=== PATIENT | male | born 2000 | race Caucasian/White ===

== ENCOUNTER 2020-05-25 14:33 | Emergency (ER) | payer BC ==
[~2020-05-25] VITALS: Ht 162.6 cm; Wt 54.5 kg
[2020-05-25] MEDS ORDERED: HYDR-3972 PO (15:59)
[2020-05-25] MEDS ORDERED: ONDA4TAB12 PO (15:59)
[2020-05-25] MEDS ORDERED: ketorolac tromethamine 15mg/ml inj. IM ONE (16:20)
[2020-05-25 17:16] VITALS: BP 106/61
== END 2020-05-25 17:17 | disposition home or self-care (01) ==
LOC: ER 14:34
DX: R10.9 Unspecified abdominal pain (principal); M25.472 Effusion, left ankle; M25.471 Effusion, right ankle; F17.200 Nicotine dependence, unspecified, uncomplicated; Z98.890 Other specified postprocedural states; Z79.899 Other long term (current) drug therapy
CPT/HCPCS: 96372; 99283; J1885

== ENCOUNTER 2021-11-20 10:05 | Emergency (ER) | payer BC, MEDICAID ==
[~2021-11-20] VITALS: Ht 162.6 cm; Wt 61.4 kg
[~2021-11-20 10:05] MED LIST: HYDR-3972 PO; ONDA4TAB12 PO
[2021-11-20] MEDS ORDERED: normal saline 1000ML IV soln IVB ONE (10:15)
[2021-11-20] MEDS ORDERED: folic acid 1mg/0.2ml inj IV ONE (10:30)
[2021-11-20] MEDS ORDERED: magnesium 2GM in 50ml NS 50 ML IV ONE (10:30)
[2021-11-20] MEDS ORDERED: metoclopramide 5 mg/ml inj IV ONE (10:30)
[2021-11-20] MEDS ORDERED: LORazepam 2 mg/ml vial IV ONE (10:30)
[2021-11-20] MEDS ORDERED: thiamine 100mg/ml 2ml inj. IV ONE (10:30)
[2021-11-20 10:34] LABS: BASOPHILS # (AUTO) 0.1 X10'3 (0-0.2); BASOPHILS % (AUTO) 0.6 % (0-1); EOSINOPHILS % (AUTO) 0.1 % (0-6); HEMATOCRIT 46.3 % (42.0-52.0); HEMOGLOBIN 15.8 g/dl (14.0-17.9); LYMPHOCYTES # (AUTO) 1.2 X10'3 (1.1-4.8); LYMPHOCYTES % (AUTO) 13.3 % (21-51); MEAN CORPUSCULAR HEMOGLOBIN 31.5 PG (27.0-31.0); MEAN CORPUSCULAR HGB CONC 34.1 g/dL (33.0-36.5); MEAN CORPUSCULAR VOLUME 92.3 FL (78-98); MEAN PLATELET VOLUME 6.2 FL (7.4-10.4); MONOCYTES # (AUTO) 0.8 X10'3 (0-0.9); MONOCYTES % (AUTO) 8.1 % (2-12); NEUTROPHILS # (AUTO) 7.2 X10'3 (1.8-7.7); NEUTROPHILS % (AUTO) 77.9 % (42-75); PLATELET COUNT 390 X10'3 (140-440); RED BLOOD COUNT 5.01 X10'6 (4.70-6.10); RED CELL DISTRIBUTION WIDTH 13.6 % (11.5-14.5); WHITE BLOOD COUNT 9.3 X10'3 (4.5-11.0)
[2021-11-20 10:53] LABS: ALANINE AMINOTRANSFERASE 30 U/L (12-78); ALBUMIN 4.1 G/DL (3.4-5.0); ALBUMIN/GLOBULIN RATIO 0.9 (1.1-1.5); ALKALINE PHOSPHATASE 125 IU/L (46-116); ANION GAP 14 (8-16); ASPARTATE AMINO TRANSFERASE 26 U/L (10-37); BILIRUBIN,TOTAL 0.7 MG/DL (0.1-1.0); BLOOD UREA NITROGEN 9 MG/DL (7-18); BUN/CREATININE RATIO 10.8 (5.4-32.0); CALCIUM 9.3 MG/DL (8.5-10.1); CHLORIDE 93 MMOL/L (99-107); CREATININE 0.83 MG/DL (0.60-1.10); GLUCOSE 111 MG/DL (70-104); LIPASE 69 U/L (73-393); POTASSIUM 3.5 MMOL/L (3.5-5.1); SODIUM 135 MMOL/L (135-145); TOTAL CARBON DIOXIDE 27.8 MMOL/L (24-32); TOTAL PROTEIN 8.5 G/DL (6.4-8.2); eGFR > 90 ML/MIN
[2021-11-20 10:55] LABS: ETHANOL < 0.010 GM/DL (0.0-0.010)
[2021-11-20 11:11] LABS: URINE AMPHETAMINE SCREEN NEGATIVE (Neg); URINE BARBITUATE SCREEN NEGATIVE (Neg); URINE BENZODIAZEPINES SCREEN NEGATIVE (Neg); URINE CANNABINOID SCREEN POSITIVE (Neg); URINE COCAINE SCREEN NEGATIVE (Neg); URINE METHADONE SCREEN NEGATIVE (Neg); URINE OPIATE SCREEN NEGATIVE (Neg); URINE PHENCYCLIDINE SCREEN NEGATIVE (Neg)
[2021-11-20] MEDS ORDERED: GABA100C PO (11:47)
[2021-11-20] MEDS ORDERED: LORA-269 PO (11:47)
[2021-11-20 12:59] VITALS: BP 108/90
== END 2021-11-20 13:05 | disposition home or self-care (01) ==
LOC: ER 10:05
DX: F10.239 Alcohol dependence with withdrawal, unspecified (principal); R25.2 Cramp and spasm; F31.9 Bipolar disorder, unspecified; Z72.89 Other problems related to lifestyle; Z98.890 Other specified postprocedural states; Z79.899 Other long term (current) drug therapy; Y90.0 Blood alcohol level of less than 20 mg/100 ml
CPT/HCPCS: 36415; 80053; 80305; 80320; 83690; 85025; 96361; 96365; 96375; 99285; J2060; J2765; J3411; J3475; J3490; J7030

== ENCOUNTER 2022-01-07 19:25 | Emergency (ER) | payer BC, MEDICAID ==
[~2022-01-07] VITALS: Ht 162.6 cm; Wt 84.1 kg
[~2022-01-07 19:25] MED LIST changes: +GABA100C PO; +LORA-269 PO
[2022-01-07] MEDS ORDERED: nicotine 21mg patch - 24 hr TD ONE (19:45)
[2022-01-07 20:27] LABS: MEAN CORPUSCULAR HGB CONC 33.5 g/dL (33.0-36.5); MEAN PLATELET VOLUME 6.6 FL (7.4-10.4); MONOCYTES # (AUTO) 1.1 X10'3 (0-0.9)
[2022-01-07 20:29] LABS: BASOPHILS # (AUTO) 0.2 X10'3 (0-0.2); BASOPHILS % (AUTO) 1.3 % (0-1); EOSINOPHILS # (AUTO) 0.1 X10'3 (0-0.9); EOSINOPHILS % (AUTO) 0.9 % (0-6); HEMATOCRIT 44.3 % (42.0-52.0); HEMOGLOBIN 14.8 g/dl (14.0-17.9); LYMPHOCYTES # (AUTO) 5.6 X10'3 (1.1-4.8); MEAN CORPUSCULAR HEMOGLOBIN 30.5 PG (27.0-31.0); MONOCYTES % (AUTO) 8.4 % (2-12); NEUTROPHILS # (AUTO) 5.7 X10'3 (1.8-7.7); NEUTROPHILS % (AUTO) 45.4 % (42-75); PLATELET COUNT 379 X10'3 (140-440); RED BLOOD COUNT 4.87 X10'6 (4.70-6.10); RED CELL DISTRIBUTION WIDTH 13.5 % (11.5-14.5); WHITE BLOOD COUNT 12.7 X10'3 (4.5-11.0)
[2022-01-07] MEDS ORDERED: diphenhydrAMINE 50 mg/ml inj IM ONE (20:40)
[2022-01-07] MEDS ORDERED: haloperidol lactate 5mg/ml inj IM ONE (20:40)
[2022-01-07] MEDS ORDERED: LORazepam 2 mg/ml vial IM ONE (20:40)
[2022-01-07 20:41] LABS: ALANINE AMINOTRANSFERASE 22 U/L (12-78); ALBUMIN 4.3 G/DL (3.4-5.0); ALBUMIN/GLOBULIN RATIO 1.1 (1.1-1.5); ALKALINE PHOSPHATASE 100 IU/L (46-116); ANION GAP 13 (8-16); ASPARTATE AMINO TRANSFERASE 42 U/L (10-37); BILIRUBIN,TOTAL 0.4 MG/DL (0.1-1.0); BLOOD UREA NITROGEN 8 MG/DL (7-18); BUN/CREATININE RATIO 9.1 (5.4-32.0); CALCIUM 8.8 MG/DL (8.5-10.1); CHLORIDE 104 MMOL/L (99-107); CREATININE 0.88 MG/DL (0.60-1.10); ETHANOL 0.218 GM/DL (0.0-0.010); GLUCOSE 103 MG/DL (70-104); SODIUM 141 MMOL/L (135-145); TOTAL CARBON DIOXIDE 23.7 MMOL/L (24-32); TOTAL PROTEIN 8.3 G/DL (6.4-8.2); eGFR > 90 ML/MIN
[2022-01-07] MEDS ORDERED: OXCA150T14 PO (21:09)
[2022-01-07] MEDS ORDERED: NALT50TA PO (21:09)
[2022-01-07] MEDS ORDERED: RISP1TAB98 PO (21:09)
--- NOTE | 2022-01-08 03:15 | NUR ---
From [id number] written by WIN "Gentry attempted to kill himself by using a rope, "cord". Quincy wrapped it around his neck until he passed out. (Nearly)" "Gentry stated he tried to make himself pass out by using a cord around his neck. He stated he didn't want to live due to being upset about his girl friend leaving. Additionally, while at the hospital, Gentry tried to cut his wrists with the handcuffs he was in".
--- NOTE | 2022-01-08 03:32 | NUR ---
Upon arrival pt was crying, upset, and uncooperative. In spite of efforts to de-escalate by staff, pt became combative, and was yelling, insisting on being let go and allowed to return home. Security assisted with restraining pt for evaluation by ER MD. Pt was placed in behavioral restraints and medicated per MD orders. Pt was resing quietly approx 40 min after medication administration. Pt behavior was re evaluated and restraints released. Pt was then given a blanket, he rolled onto his side and fell asleep.
[2022-01-08 04:54] LABS: URINE AMPHETAMINE SCREEN POSITIVE (Neg); URINE BARBITUATE SCREEN NEGATIVE (Neg); URINE BENZODIAZEPINES SCREEN NEGATIVE (Neg); URINE CANNABINOID SCREEN POSITIVE (Neg); URINE COCAINE SCREEN NEGATIVE (Neg); URINE METHADONE SCREEN NEGATIVE (Neg); URINE OPIATE SCREEN NEGATIVE (Neg); URINE PHENCYCLIDINE SCREEN NEGATIVE (Neg)
--- NOTE | 2022-01-08 06:50 | NUR ---
Patient appears to be sleeping. Warm blanket was given 20 minutes ago. No distress observed. Continue to monitor.
[2022-01-08] MEDS ORDERED: ondansetron 4mg rapidly disintigrating tab PO PRN (07:30)
[2022-01-08] MEDS ORDERED: naltrexone 50mg tablet PO SCH (08:00)
[2022-01-08] MEDS ORDERED: oxcarbazepine 150mg tablet PO SCH (08:00)
--- NOTE | 2022-01-08 08:25 | NUR ---
Patient's lunch placed at bedside. Patient awoken for breakfast but patient did not want to eat at this time. Continue to monitor.
--- NOTE | 2022-01-08 09:10 | NUR ---
Patient took his medication and stated he had a lot more than this. RN asked patient what medication he is not getting. Patient stated Lorazepam. RN advised patient if he knows what pharmacy he gets it from RN would call and verify the dose. Patient did not respond. Continue to monitor.
--- NOTE | 2022-01-08 10:10 | NUR ---
Hira WHITE, evaluating patient. Continue to monitor.
--- NOTE | 2022-01-08 12:03 | NUR ---
Patient talking on the phone. No distress observed. Continue to monitor.
--- NOTE | 2022-01-08 12:30 | NUR ---
Patient crying loudly after speaking on the phone to family. Continue to monitor.
[2022-01-08] MEDS ORDERED: nicotine 21mg patch - 24 hr TD SCH (12:45)
[2022-01-08] MEDS ORDERED: LORazepam 1 MG tablet PO ONE ×2 (12:45→17:30)
--- NOTE | 2022-01-08 13:10 | NUR ---
Patient's mom at bedside and comforting patient. Continue to monitor.
--- NOTE | 2022-01-08 15:08 | NUR ---
Patient sleeping supine. No distress observed. Continue to monitor.
[2022-01-08 17:11] VITALS: BP 134/71
--- NOTE | 2022-01-08 17:23 | NUR ---
Patient accepted at [facility]. Patient aware and started crying. Continue to monitor.
[2022-01-08] MEDS ORDERED: NICOTINE POLACRILEX 2 MG LOZENGE BC ONE (17:30)
--- NOTE | 2022-01-08 17:40 | NUR ---
Patient states he drinks 8-10 beers a day. RN to give 2 mg Ativan PO before patient leaves. RN called Eda Chin and advised TRICIA Cardona. [facility] [place].
--- NOTE | 2022-01-08 17:49 | NUR ---
Girlfriend with patient. No distress observed at this time. Continue to monitor.
[2022-01-08] MEDS ORDERED: risperiDONE 0.5mg tablet PO SCH (21:00)
== END 2022-01-08 18:27 ==
LOC: ER 19:26
DX: R45.851 Suicidal ideations (principal); Z20.822 Contact with and (suspected) exposure to COVID-19; F31.9 Bipolar disorder, unspecified; F15.20 Other stimulant dependence, uncomplicated
CPT/HCPCS: 36415; 80053; 80305; 80320; 84443; 85025; 87811; 96372; 99285; J1200; J1630; J2060